=== PATIENT | male | born 1955 | race Caucasian/White ===

== ENCOUNTER 2018-12-21 15:57 | Inpatient (IN) | payer OTHER ==
[~2018-12-21] VITALS: Ht 180.3 cm; Wt 80.4 kg
[2018-12-21] MEDS ORDERED: IV NORMAL SALINE 1000 ML BAG IV ONE (16:15)
--- NOTE | 2018-12-21 16:27 | NUR ---
pt is in room #1a. dr chavis evaluated the pt.
[2018-12-21 16:33] LABS: BASOPHILS # (AUTO) 0.4 K/uL (0.0-8.0); BASOPHILS % (AUTO) 3.8 % (0.0-2.0); EOSINOPHILS # (AUTO) 0.1 K/uL (0.0-0.7); EOSINOPHILS % (AUTO) 0.7 % (0.0-7.0); HEMATOCRIT 32.1 % (36.7-47.1); LYMPHOCYTES # (AUTO) 4.6 K/uL (20.0-40.0); LYMPHOCYTES % (AUTO) 48.2 % (20.5-51.5); MEAN CORPUSCULAR HEMOGLOBIN 39.5 uug (23.8-33.4); MEAN CORPUSCULAR HGB CONC 34 g/dL (32.5-36.3); MEAN CORPUSCULAR VOLUME 115.8 fL (73.0-96.2); MONOCYTES # (AUTO) 0.7 K/uL (2.0-10.0); NEUTROPHILS # (AUTO) 3.9 K/uL (1.8-8.9); NEUTROPHILS % (AUTO) 40.3 % (38.5-71.5); PLATELET COUNT (AUTO) 162 K/uL (152-348); RED BLOOD CELL COUNT(AUTO) 2.77 MIL/uL (4.06-5.63); WHITE BLOOD COUNT (AUTO) 9.6 K/uL (3.6-10.2)
[2018-12-21 16:45] LABS: CREATININE 2.6 mg/dL (0.6-1.3); POTASSIUM 2.9 mmol/L (3.5-5.1)
[2018-12-21] MEDS ORDERED: IV SODIUM CHLORIDE 3% 500 ML IV ONE (17:00)
[2018-12-21 17:08] LABS: BILIRUBIN,DIRECT 24.8 mg/dL (0.0-0.2); BILIRUBIN,TOTAL 30.1 mg/dL (0.1-1.0)
[2018-12-21 17:09] LABS: TOTAL PROTEIN, SERUM 4.9 g/dL (6.4-8.2)
[2018-12-21 17:28] LABS: BAND % (MANUAL) 24 % (0-10); LYMPHOCYTES % (MANUAL) 8 % (20-40); MONOCYTES % (MANUAL) 10 % (2-10); NEUTROPHILS % (MANUAL) 58 % (42-75)
[2018-12-21] MEDS ORDERED: NOREPINEPHRINE BITARTRATE 4 MG in IV DEXTROSE 5% 250 ML IV ONE (18:00)
--- NOTE | 2018-12-21 18:30 | NUR ---
PICC LINE WAS INSERTED BY PICC LINE MENDEZ MONTALVO IN PT's RIGHT UPPER ARM. PATIENT TOLERATED TO PROCEDURE WITHOUT COMPLICATIONS.
[2018-12-21 18:32] LABS: ETHANOL < 3 MG/DL (0-0)
--- NOTE | 2018-12-21 19:09 | NUR ---
REPORT WAS GIVEN TO PLASTIC SHEETING CUTTERANIMAL CARE PROVIDER.
--- NOTE | 2018-12-21 19:20 | NUR ---
Called [facility], spoke with Andreia, to fax pt history and medication lists.
--- NOTE | 2018-12-21 19:56 | NUR ---
Xray at bedside to verify PICC line placement.
[2018-12-21] MEDS ORDERED: PROP10TA10 PO (20:44)
[2018-12-21] MEDS ORDERED: xalatan EACHEYE (20:44)
[2018-12-21] MEDS ORDERED: VERA240C2 PO (20:44)
[2018-12-21] MEDS ORDERED: SILD20TA PO (20:44)
[2018-12-21] MEDS ORDERED: TIMO5SOL11 OP (20:44)
[2018-12-21] MEDS ORDERED: IBUP-1955 PO (20:44)
[2018-12-21] MEDS ORDERED: LISI-603 PO (20:44)
[2018-12-21] MEDS ORDERED: BRIMONIDINE 0.2% EACHEYE (20:44)
[2018-12-21] MEDS ORDERED: ASPI-605 PO (20:44)
[2018-12-21] MEDS ORDERED: ONDANSETRON 4 MG/2 ML VIAL IV PRN (20:45)
[2018-12-21] MEDS ORDERED: MAGNESIUM HYDROXIDE 30 ML LIQUID UDC PO PRN (20:45)
[2018-12-21] MEDS ORDERED: Z GUARD REMEDY PASTE 57 GM TUBE TOP PRN (20:45)
[2018-12-21] MEDS ORDERED: HYDROCODONE/APAP 5-325MG TABLET PO PRN (20:45)
--- NOTE | 2018-12-21 21:19 | NUR ---
Report given to Siobhan SENIOR TECHNICAL SUPPORT ANALYST.
[2018-12-21 22:20] VITALS: BP 136/74
--- NOTE | 2018-12-21 22:20 | NUR ---
ADMITTED FROM ER VIA [facility] W/ ADMITTING DX OF ACUTE LIVER FAILURE. PT IS ALERT & ORIENTED X3. PICC LINE INTACT & PATENT ON CHRISTELLE. HEP LOCK INTACT & PATENT ON R HAND & LFA. BP STABLE. ON RM AIR W/ O2 SAT OF 98%. NOT IN ANY DISTRESS. ON 3% SODIUM CHLORIDE @ 50CC/HR ON PICC LINE PORT. C-SCOPE SR. NO ECTOPY.
[2018-12-21] MEDS ORDERED: LEVOFLOXACIN 500 MG/D5W 500 MG in PREMIXED 1 EACH IV ONE (22:30)
[2018-12-21 23:00] VITALS: BP 114/64
[2018-12-21] MEDS ORDERED: LEVOFLOXACIN 500 MG/D5W 100 ML ONE (23:01)
[2018-12-22] VITALS (18 sets, daily range): BP systolic 94–130; BP diastolic 50–82
[2018-12-22] MEDS ORDERED: VANCOMYCIN FOR PO/GT/NG USE PO SCH
--- NOTE | 2018-12-22 | NUR ---
UP IN COMMODE, NO BOWEL MOVEMENT NOTED. PT HAS MILD WEAKNESS ON BOTH LOWER EXTREMITIES. NOT IN ANY DISTRESS. V/S STABLE.
[2018-12-22] MEDS: IV NS 1000 ML 1,000 ML IV PRN ×2 (01:19→23:27)
--- NOTE | 2018-12-22 05:00 | NUR ---
AM CARE DONE, AFTER UP IN COMMODE. NOT IN ANY DISTRESS.
[2018-12-22 05:42] LABS: ALANINE AMINOTRANSFERASE 79 U/L (16-63); ALKALINE PHOSPHATASE 518 U/L (50-136); ASPARTATE AMINOTRANSFERASE 169 U/L (15-37); BILIRUBIN,TOTAL 28.6 mg/dL (0.2-1.0); CARBON DIOXIDE 14 mmol/L (21-32); CHOLESTEROL 240 mg/dL (<200); GLUCOSE 81 mg/dL (74-106); PHOSPHOROUS 3.9 mg/dL (2.5-4.9); POTASSIUM 2.9 mmol/L (3.5-5.1); TOTAL PROTEIN, SERUM 4.6 g/dL (6.4-8.2); TRIGLYCERIDES 232 MG/DL (30-150); UREA NITROGEN, BLOOD 42 mg/dL (7-18)
[2018-12-22 05:45] LABS: THYROID STIMULATING HORMONE 0.034 mIU/mL (0.358-3.740)
--- NOTE | 2018-12-22 06:00 | NUR ---
V/S STABLE. O2 SAT ADEQ ON RM AIR.
[2018-12-22 06:24] LABS: CHLORIDE 80 mmol/L (98-107)
[2018-12-22 06:25] LABS: HDL CHOLESTEROL < 10 mg/dL (40-60); MAGNESIUM 1.2 mg/dL (1.8-2.4)
[2018-12-22 06:32] LABS: BASOPHILS # (AUTO) 0.1 K/uL (0.0-8.0); EOSINOPHILS # (AUTO) 0.1 K/uL (0.0-0.7); HEMATOCRIT 29.7 % (36.7-47.1); HEMOGLOBIN 10.4 g/dL (12.5-16.3); LYMPHOCYTES # (AUTO) 5.7 K/uL (20.0-40.0); MEAN CORPUSCULAR HGB CONC 35 g/dL (32.5-36.3); MEAN CORPUSCULAR VOLUME 113.9 fL (73.0-96.2); NEUTROPHILS # (AUTO) 4.9 K/uL (1.8-8.9); PLATELET COUNT (AUTO) 148 K/uL (152-348); WHITE BLOOD COUNT (AUTO) 11.8 K/uL (3.6-10.2)
[2018-12-22 07:24] LABS: BAND % (MANUAL) 13 % (0-10); LYMPHOCYTES % (MANUAL) 5 % (20-40); MONOCYTES % (MANUAL) 7 % (2-10); NEUTROPHILS % (MANUAL) 75 % (42-75)
[2018-12-22] MEDS: PANTOPRAZOLE SODIUM 40 MG TABLET.DR PO SCH (07:27)
[2018-12-22] MEDS ORDERED: MIDODRINE HCL 2.5 MG TABLET PO SCH (09:00)
[2018-12-22] MEDS ORDERED: POTASSIUM CHLORIDE 100 ML IV SCH (09:00)
[2018-12-22] MEDS ORDERED: IV SODIUM CHLORIDE 3% 500 ML IV SCH (09:00)
[2018-12-22] MEDS ORDERED: ALBUMIN HUMAN 25% 25 GM in PREMIXED 1 EACH IV SCH (09:00)
[2018-12-22] MEDS: ALBUMIN HUMAN 25% 25 GM in PREMIXED 1 EACH IV SCH ×4 (09:40→21:36)
[2018-12-22] MEDS: OCTREOTIDE ACETATE DRIP 1,250 MCG in IV NORMAL SALINE 247.5 ML IV PRN (10:01)
[2018-12-22] MEDS ORDERED: DOSING BY PHARMACY-MD TO SPECIFY MED/ROUTE XX PRN (10:15)
[2018-12-22] MEDS: MIDODRINE HCL 5 MG TABLET PO SCH ×2 (11:17→21:16)
[2018-12-22] MEDS: PIPERACILLIN/TAZOBACTAM/D5W 2.25 G in PREMIXED 1 EACH IV SCH ×3 (11:54→23:21)
[2018-12-22] MEDS ORDERED: VANCOMYCIN FOR PO/GT/NG USE PO ONE (12:00)
[2018-12-22] MEDS: POTASSIUM CHLORIDE 50 ML IV SCH ×2 (12:17→13:24)
[2018-12-22 14:27] LABS: CREATININE 3.2 mg/dL (0.6-1.3); POTASSIUM 3.1 mmol/L (3.5-5.1)
--- NOTE | 2018-12-22 16:00 | NUR ---
TRANSFERRED FROM ICU VIA BED AWAKE ALERT WITH FAMILY AT BEDSIDE. REORIENTATION DONE. SR ON MONITOR
--- NOTE | 2018-12-22 20:00 | NUR ---
PATIENT AWAKE IN BED, AAOX3 WITH EPISODES OF CONFUSION. DENIES PAIN OR ANY DISTRESS. ON TELE WITH SR. SAFETY MEASURES IN PLACE, BED ALARM ON WILL CONT' TO MONITOR PATIENT
[2018-12-22] MEDS ORDERED: LEVOFLOXACIN 250MG /D5W 50 ML IV SCH (22:45)
[2018-12-23] VITALS: BP 118/72
[2018-12-23] MEDS: ALBUMIN HUMAN 25% 25 GM in PREMIXED 1 EACH IV SCH (02:55)
[2018-12-23 04:00] VITALS: BP 137/74
[2018-12-23] MEDS: MIDODRINE HCL 5 MG TABLET PO SCH ×2 (06:01→13:32)
[2018-12-23] MEDS: PANTOPRAZOLE SODIUM 40 MG TABLET.DR PO SCH (06:01)
[2018-12-23] MEDS: PIPERACILLIN/TAZOBACTAM/D5W 2.25 G in PREMIXED 1 EACH IV SCH ×3 (06:01→17:48)
[2018-12-23 06:36] LABS: HEMATOCRIT 27.3 % (36.7-47.1); HEMOGLOBIN 9.8 g/dL (12.5-16.3); MEAN CORPUSCULAR HEMOGLOBIN 40.6 uug (23.8-33.4); MEAN CORPUSCULAR HGB CONC 36 g/dL (32.5-36.3); MEAN CORPUSCULAR VOLUME 113.4 fL (73.0-96.2); PLATELET COUNT (AUTO) 132 K/uL (152-348); WHITE BLOOD COUNT (AUTO) 13.1 K/uL (3.6-10.2)
--- NOTE | 2018-12-23 06:46 | NUR ---
PATIENT SLEEPING WITH NO S/S OF PAIN OR ACUTE DISTRESS AT THIS TIME. EPISODES OF CONFUSION AT TIMES BUT ABLE TO REDIRECT. SAFETY MEASURES MAINTAINED AT ALL TIMES
[2018-12-23 07:06] LABS: BILIRUBIN,TOTAL 35.7 mg/dL (0.2-1.0); CREATININE 3.8 mg/dL (0.6-1.3); MAGNESIUM 1.5 mg/dL (1.8-2.4); PHOSPHOROUS 3.6 mg/dL (2.5-4.9); TOTAL PROTEIN, SERUM 5.1 g/dL (6.4-8.2)
[2018-12-23 07:32] LABS: BAND % (MANUAL) 3 % (0-10); LYMPHOCYTES % (MANUAL) 10 % (20-40); MONOCYTES % (MANUAL) 8 % (2-10); NEUTROPHILS % (MANUAL) 79 % (42-75)
[2018-12-23 07:37] LABS: POTASSIUM 3.1 mmol/L (3.5-5.1)
[2018-12-23] MEDS ORDERED: MAGNESIUM SULFATE/D5W 100 ML IV SCH (08:30)
--- NOTE | 2018-12-23 10:01 | NUR ---
Patient pulled out both peripheral IV lines. Attempted 2 times to reinsert with no success. Called PharmacistDeisi to clarify if Sandostatin is compatible with Magnesium and Potassium drips and if okay to run through triple lumen PICC at same time. Per Deisi, it is okay to run medications at same time through PICC line.
[2018-12-23] MEDS: POTASSIUM CHLORIDE 50 ML IV SCH ×2 (11:02→12:17)
[2018-12-23 11:55] VITALS: BP 131/85
--- NOTE | 2018-12-23 12:53 | NUR ---
Gibbons catheter inserted per orders, patient tried pulling at catheter and tried getting out of bed. Needs lots of re direction. MD aware with order for 1:1 sitter
[2018-12-23] MEDS ORDERED: METRONIDAZOLE 500 MG/NS 100ML 500 MG in PREMIXED 1 EACH IV SCH (14:00)
[2018-12-23] MEDS: VANCOMYCIN FOR PO/GT/NG USE PO SCH ×2 (14:22→17:48)
[2018-12-23] MEDS: OCTREOTIDE ACETATE DRIP 1,250 MCG in IV NORMAL SALINE 247.5 ML IV PRN (15:31)
--- NOTE | 2018-12-23 15:39 | NUR ---
Report given to Camille at [facility]. Per Camille the only facility that does the procedure [place]. Will arrange for transportation and call back with pickle maker time.
[2018-12-23 15:42] VITALS: BP 125/86
[2018-12-23] MEDS: IV NS 1000 ML 1,000 ML IV PRN (17:48)
--- NOTE | 2018-12-23 19:20 | NUR ---
RECEIVED PT WITH SITTER. PT ASLEEP ON BED. IV INTACT. JOHNSON INTACT. PT WITH NO ACUTE DISTRESS. WAITING FOR [facility] TO TRANSPORT TO [facility].
--- NOTE | 2018-12-23 19:52 | NUR ---
PT WHEELED OUT VIA [facility]. PT DISCHARGE PAPERS GIVEN TO DEJAH Olivia. PT IN NO ACUTE DISTRESS. PT VITAL SIGNS WITHIN NORMAL LIMIT.PT ID BAND TAKEN OFF. BELONGING LIST GIVEN. PT STABLE.
--- NOTE | 2018-12-24 04:53 | NUR ---
INFORMATION SENT: FACESHEET,24 HOURS REPORT,PROGRESS NOTES 12/23,UR 12/23 INSURANCE NAME: [facility] FAX NUMBER: [phone] FAX SENT
[2018-12-24 11:07] LABS: A/G RATIO 1.2 (0.7-1.7); ALBUMIN 2.7 g/dL (2.9-4.4); ALPHA-1-GLOBULIN 0.3 g/dL (0.0-0.4); ALPHA-2-GLOBULIN 0.5 g/dL (0.4-1.0); BETA GLOBULIN 0.6 g/dL (0.7-1.3); GAMMA GLOBULIN 0.8 g/dL (0.4-1.8); GLOBULIN, TOTAL 2.2 g/dL (2.2-3.9); M-SPIKE 0.5 g/dL (Not Observed)
== END 2018-12-23 20:00 | disposition short-term general hospital (02) | DRG 441 ==
LOC: ER 15:57 → CCU 21:29 → TELE-TD3 12-22 16:03 → TELE3 12-22 21:50
PROC: 02HV33Z Insertion of Infusion Device into Superior Vena Cava, Percutaneous Approach (ICD-10-PCS; principal; 2018-12-21)
DX: K72.00 Acute and subacute hepatic failure without coma (principal); E43 Unspecified severe protein-calorie malnutrition; K76.7 Hepatorenal syndrome; K85.90 Acute pancreatitis without necrosis or infection, unspecified; E87.1 Hypo-osmolality and hyponatremia; N17.9 Acute kidney failure, unspecified; D68.4 Acquired coagulation factor deficiency; J98.11 Atelectasis; F10.20 Alcohol dependence, uncomplicated; Y90.0 Blood alcohol level of less than 20 mg/100 ml; K52.9 Noninfective gastroenteritis and colitis, unspecified; E87.6 Hypokalemia; I25.10 Atherosclerotic heart disease of native coronary artery without angina pectoris; R59.0 Localized enlarged lymph nodes; R60.1 Generalized edema; K44.9 Diaphragmatic hernia without obstruction or gangrene; E87.8 Other disorders of electrolyte and fluid balance, not elsewhere classified; K57.30 Diverticulosis of large intestine without perforation or abscess without bleeding; K40.90 Unilateral inguinal hernia, without obstruction or gangrene, not specified as recurrent; K82.8 Other specified diseases of gallbladder; N40.0 Benign prostatic hyperplasia without lower urinary tract symptoms; K81.9 Cholecystitis, unspecified; I70.0 Atherosclerosis of aorta
CPT/HCPCS: 36415; 70030-TC; 71045; 76700; 83605; 83690; 83735; 83970; 84100; 84155; 84165; 84443; 85025; 85730; 86850; 86900; 86901; 87040; 93005; 93307; 97110; 97116; 97530; A4663; G0378; G0480; G0480-TC; J1956; J2354; J2543; J3370; J3475; J3480; J3490; J7030; J7042; J7050; P9047